=== PATIENT | male | born 1995 | race Asian ===

== ENCOUNTER → 2018-02-17 | Outpatient (CLI) | payer OTHER ==
[2018-02-17 10:58] LABS: BASOPHILS % (AUTO) 1.2 % (0.0-5.0); EOSINOPHILS % (AUTO) 2.6 % (0.0-8.0); HEMATOCRIT 48.8 % (42-54); LYMPHOCYTES % (AUTO) 49.9 % (21.0-51.0); MEAN CORPUSCULAR HGB CONC 34.8 g/dL (32.0-36.0); MEAN CORPUSCULAR VOLUME 89.1 fL (80-100); MONOCYTES % (AUTO) 9.2 % (3.0-13.0); NEUTROPHILS % (AUTO) 37.1 % (40.0-77.0); NUCLEATED RED BLOOD CELLS 0.1 % (0.0-0.19); PLATELET COUNT (AUTO) 282 K/uL (130-400); RED BLOOD CELL COUNT(AUTO) 5.48 MIL/uL (4.50-6.20); RED CELL DISTRIBUTION WIDTH 13.7 % (11.0-15.5); WHITE BLOOD COUNT (AUTO) 4.1 K/uL (4.8-10.8)
[2018-02-17 10:59] LABS: APPEARANCE,URINE Clear (CLEAR); BILIRUBIN,URINE Negative (NEGATIVE); COLOR,URINE Yellow (YELLOW); GLUCOSE, URINE (UA) Negative (NEGATIVE); KETONES,URINE Negative (NEGATIVE); LEUKOCYTE ESTERASE ,URINE Negative (NEGATIVE); NITRATE,URINE Negative (NEGATIVE); OCCULT BLOOD,URINE Negative (NEGATIVE); PROTEIN,URINE Negative (NEGATIVE); UROBILINOGEN,URINE 0.2 mg/dL (0.2-1.0)
[2018-02-17 11:29] LABS: ALBUMIN 4.5 g/dL (3.5-5.0); BILIRUBIN,DIRECT 0.3 mg/dL (0.0-0.3); BILIRUBIN,TOTAL 3.1 mg/dL (0.2-1.0); THYROID STIMULATING HORMONE 1.67 uIU/mL (0.36-3.74); TOTAL PROTEIN, SERUM 8.1 g/dL (6.0-8.3)
[2018-02-17 12:17] LABS: ERYTHROCYTE SEDIMENTATION RATE 2 MM/HR (0-15)
[2018-02-18 09:14] LABS: VITAMIN D, 25-HYDROXY 23.1 ng/mL (30.0-100.0)
== END | disposition home or self-care (01) ==
LOC: RAH 10:03
PROVIDERS: ATTEND Family Medicine
DX: R10.13 Epigastric pain (principal); E55.9 Vitamin D deficiency, unspecified; N18.6 End stage renal disease
CPT/HCPCS: 36415; 76700; 80061; 80076; 81003; 82306; 84439; 84443; 85025; 85651

== ENCOUNTER 2021-08-29 13:26 | Emergency (ER) | payer OTHER ==
[~2021-08-29] VITALS: Ht 162.6 cm; Wt 62.6 kg
[2021-08-29 13:31] VITALS: BP 129/84
[2021-08-29] MEDS ORDERED: MAG/ALUM/SIMETH 30 ML UDCUP PO ONE (14:30)
[2021-08-29] MEDS ORDERED: LIDOCAINE HCL 2% VISCOUS 15 ML UDCUP PO ONE (14:30)
[2021-08-29] MEDS ORDERED: LIDOCAINE HCL 2% VISCOUS 15 ML UDCUP ONE (14:33)
[2021-08-29] MEDS ORDERED: MAG/ALUM/SIMETH 30 ML UDCUP ONE (14:33)
[2021-08-29] MEDS ORDERED: BENZ-39 PO (15:31)
[2021-08-29] MEDS ORDERED: ONDA4TAB10 PO (15:31)
== END 2021-08-29 15:50 | disposition home or self-care (01) ==
LOC: EDH 13:26
DX: B34.9 Viral infection, unspecified (principal); J45.909 Unspecified asthma, uncomplicated; Z20.822 Contact with and (suspected) exposure to COVID-19; Z79.899 Other long term (current) drug therapy
CPT/HCPCS: 87635; 87804 ×2; 87880; 99283; C9803